=== PATIENT | female | born 1980 | race Caucasian/White ===

== ENCOUNTER 2024-02-22 10:43 | Outpatient (CLI) | payer OTHER, SELFPAY ==
--- NOTE | 2024-02-22 10:56 | US_ITS ---
WS: [id number] THYROID ULTRASOUND HISTORY: ENLARGED THYROID COMPARISON: None available. Right lobe: 1.3 cm x 1.2 cm x 5.3 cm (w x ap x l). Volume: 4.0 cm3. There is a single spongiform nodule in the mid RIGHT thyroid measuring 1.4 x 0.8 x 1.4 cm. Predominan tly cystic mass. Mild peripheral increased vascularity. Left lobe: 1.2 cm x 1.1 cm x 4.7 cm (w x ap x l). Volume: 2.8 cm3. Normal size and echotexture. No significant or dominant nodules are present. Isthmus: 0.3 cm. US/US thyroid [id number] IMPRESSION: 1. TI-RADS 2: Spongiform nodule RIGHT thyroid lobe. No biopsy recommended. 2. No thyromegaly.
== END 2024-02-22 10:44 | disposition home or self-care (01) ==
PROVIDERS: Visit Provider Nurse Practitioner
DX: E04.1 Nontoxic single thyroid nodule (principal)
CPT/HCPCS: 76536

== ENCOUNTER 2024-11-02 20:50 | Emergency (ER) | payer OTHER, SELFPAY ==
[2024-11-02 20:57] VITALS: BP 118/81; PULSE 91; RESP 22; TEMP 37; O2SAT 98; BMI 37.2
--- NOTE | 2024-11-02 21:40 | XRR_ITS ---
PROCEDURE INFORMATION: Exam: XR Chest Exam date and time: 11/02/2024 9:45 PM Age: 43 years old Clinical indication: Shortness of breath; PT reporting flu-like symptoms and needing her inhaler more often for the last week. PT reports the last few hours she started having an asthma attack with persistent coughing. Nebs and mdi's helping a little but not fully resolved. PT is forcefully exhaling which causes her to cough. ; Additional info: SOB TECHNIQUE: Imaging protocol: Radiologic exam of the chest. Views: 1 view. COMPARISON: No relevant prior studies available. FINDINGS: Lungs: Unremarkable. No consolidation. Pleural spaces: Unremarkable. No pleural effusion. No pneumothorax. Heart/Mediastinum: Cardiomegaly. Bones/joints: Unremarkable. XR/XR chest 1V portable [id number] IMPRESSION: No acute findings.
--- NOTE | 2024-11-02 21:41 | W.ED.URI ---
HPI - URI/Sore Throat General: Chief Complaint: Upper Respiratory Infection Stated Complaint: asthma attack Time Seen by Provider: 11/02/24 21:24 Source: patient Mode of arrival: ambulatory Limitations: no limitations History of Present Illness: Patient is a 43-year-old female with a history of asthma here with recent illness and concerns for asthma exacerbation. She states her asthma is normally well-controlled and usually does not require use of her albuterol inhaler. She states over the past several days she has had cough, congestion, runny nose. Positive sick contacts. She has not been running fevers. She arrives with stable vital signs and satting 98% on room air. MD elicited complaint: cough Onset (ago): day(s) Consistency: intermittent Severity: moderate Description of mucous: clear Able to tolerate fluids by mouth: Yes Exacerbating factors: nothing Relieving factors: nothing Associated symptoms: Deny abdominal pain, chills, chest pain, diarrhea, fever(s), headache(s), nausea or vomiting Treatments prior to arrival: none Related Data Previous Rx's ?Medication ?Instructions ?Recorded albuterol sulfate 2.5 mg/0.5 mL 2.5 mg (0.5 mL) inhalation Q3H PRN 11/02/24 solution for nebulization shortness of breath or wheezing #30 ea prednisone 10 mg tablet 10 mg PO DAILY 6 days #20 tabs 11/02/24 Allergies Allergy/AdvReac Type Severity Reaction Status Date / Time clarithromycin (From Biaxin) Allergy ALGY-Rash Verified 11/02/24 21:03 Penicillins Allergy Unknown Verified 11/02/24 21:03 sulfamethoxazole (From Allergy ALGY-Anaphy Verified 11/02/24 21:03 Septra) laxis trimethoprim (From Septra) Allergy ALGY-Anaphy Verified 11/02/24 21:03 laxis fluticasone (From Advair AdvReac ADR-Dry Verified 11/02/24 21:04 Diskus) Mucus Membranes Opioids - Morphine Analogues AdvReac ADR-Agitate Verified 11/02/24 21:04 d salmeterol (From Advair AdvReac ADR-Dry Verified 11/02/24 21:04 Diskus) Mucus Membranes Review of Systems Const: Denies: fever(s), chills, body aches, fatigue or malaise Card: Denies: chest pain or palpitations Resp: Reports: dyspnea, non-productive cough, wheezing and chest congestion; Denies: stridor GI: Denies: abdominal pain, nausea, vomiting or diarrhea Musc: Denies: neck pain Neuro: Denies: headache(s) or dizziness Physical Exam Const: COMMON NORMALS: no acute distress, patient oriented x3, no limitations, alert and well nourished GENERAL APPEARANCE: cooperative NUTRITIONAL APPEARANCE: obese (BMI 37.2) ORIENTATION/CONSCIOUSNESS: Yes awake, Yes oriented to person, Yes oriented to place and Yes oriented to time HENMT: FACE & SINUS: normal facial exam MOUTH: Normal oral and palatal mucosa present and lip normal THROAT: posterior oropharynx normal and tonsils normal Eye: GENERAL EYE: appearance normal, both eyes and all related structures Neck/C-Spine: GENERAL: Yes normal visual inspection, No anterior neck swelling and No submandibular swelling Chest: COMMONS NORMALS: normal inspection of the chest and normal palpation of entire chest wall Resp: COMMON NORMALS: normal respiratory effort AUSCULTATION: wheezes OTHER: dry non-productive cough Cardio: COMMON NORMALS: regular rate and regular rhythm RATE: regular rate RHYTHM: regular rhythm Extremity: GENERAL: Yes normal exam except as noted Neuro: COMMON NORMALS: patient oriented x3 SENSORIUM/ORIENTATION: Yes alert, Yes oriented to person, Yes oriented to place and Yes oriented to time Course Vital Signs: Vital signs: Vital Signs Temperature 98.6 F 11/02/24 20:57 Pulse Rate 90 11/02/24 22:37 Respiratory Rate 18 11/02/24 22:37 Blood Pressure 130/74 11/02/24 22:37 Pulse Oximetry 95 11/02/24 22:37 Oxygen Delivery Me thod Room Air 11/02/24 22:37 MDM - URI/Sore Throat Medical Decision Making Patient feels better after DuoNeb and IM Solu-Medrol. CXR is unremarkable. COVID/flu/RSV testing was negative. Patient will be allowed discharge. Will place on a steroid taper. She states she does have a nebulizer machine at home so we will prescribe her albuterol vials she can use. Return to ED precautions discussed. Medical Records I reviewed the patient's medical records. Lab Data I reviewed the patient's lab results. Radiology Impressions Chest X-Ray 11/02/24 21:40 IMPRESSION: No acute findings. Laboratory Results Influenza A (PCR) Negative (Negative) 11/02/24 22:04 Influenza Type B (PCR) Negative (Negative) 11/02/24 22:04 RSV (PCR) Negative (Negative) 11/02/24 22:04 SARS-CoV-2 (PCR) Negative (Negative) 11/02/24 22:04 All radiology interpretation(s) finalized by discharge Discharge Plan Discharge Patient Disposition: Home Clinical Impression: Upper respiratory infection Qualifiers: URI type: unspecified URI Qualified Code(s): J06.9 - Acute upper respiratory infection, unspecified Asthma exacerbation Qualifiers: Asthma severity: mild Asthma persistence: unspecified Qualified Code(s): J45.901 - Unspecified asthma with (acute) exacerbation Condition: Stable Prescriptions: New prednisone 10 mg tablet 10 mg PO DAILY 6 Days Qty: 20 0RF Rx Instructions: Take 5 tabs on day 1-2, 4 tabs on day 3, 3 tabs on day 4, 2 tabs on day 5, and 1 tab on day 6 albuterol sulfate 2.5 mg/0.5 mL solution for nebulization 2.5 mg inhalation Q3H PRN (Reason: shortness of breath or wheezing) Qty: 30 0RF Discharge Orders: Discharge ED (Routine); Ordered 11/02/24 Ordered By: Marisol Smith Patient Instructions: Asthma (DC), Upper Respiratory Infection (DC) Print Language: Upper Sorbian Coding Level of Care Code ED State'S Attorney for Di Goodman
[2024-11-02 21:47] VITALS: BP 152/83; PULSE 97; RESP 22; O2SAT 96
[2024-11-02 22:01] VITALS: PULSE 95; RESP 18; O2SAT 94
[2024-11-02 22:06] VITALS: PULSE 106
[2024-11-02] MEDS: ipratropium-albuterol 3 mL Neb INHALATION (22:09)
[2024-11-02] MEDS: methylPREDNISolone sod succ 125 mg/2 mL INJ IM (22:35)
[2024-11-02 22:37] VITALS: BP 130/74; PULSE 90; RESP 18; O2SAT 95
[2024-11-02 23:12] LABS: Influenza A NEGATIVE (Negative); Influenza B NEGATIVE (Negative); Respiratory Syncytial Virus Ce NEGATIVE (Negative); SARS-CoV-2 PCR NEGATIVE (Negative)
[2024-11-03 00:01] VITALS: BP 117/67; PULSE 98; RESP 20; O2SAT 100
== END 2024-11-03 00:05 | disposition home or self-care (01) ==
PROVIDERS: Emergency Provider Physician Assistant
DX: J06.9 Acute upper respiratory infection, unspecified (principal); J45.901 Unspecified asthma with (acute) exacerbation; Z11.52 Encounter for screening for COVID-19
CPT/HCPCS: 71045; 87637; 94640; 96372; 99284; J2919

== ENCOUNTER → 2024-12-31 08:22 | Outpatient (BNVA) | payer OTHER, SELFPAY | PROVIDERS: Visit Provider Nurse Practitioner Women's Health | DX: D25.9 Leiomyoma of uterus, unspecified (principal) | CPT/HCPCS: 76830 ==

== ENCOUNTER 2025-01-07 15:03 | Emergency (ER) | payer OTHER, SELFPAY ==
[2025-01-07 15:29] VITALS: BP 139/83; PULSE 83; TEMP 36.8; O2SAT 95
[2025-01-07 15:32] LABS: Basophils % 0.6 %; Eosinophils # 0.2 10^3/uL (0.0-0.8); Eosinophils % 2.3 %; Hematocrit 40.7 % (36-47); Lymphocytes # 2.4 10^3/uL (0.8-4.8); Lymphocytes % 34.4 %; Mean Corpuscular HGB Conc 32.4 g/dL (30-55); Mean Corpuscular Hemoglobin 30.2 pg (27-33); Mean Corpuscular Volume 93.1 fl (85-98); Mean Platelet Volume 9.3 fL (7.4-10.4); Monocytes # 0.5 10^3/uL (0.2-0.9); Monocytes % 7.2 %; Neutrophils # 3.91 10^3/uL (1.8-7.7); Neutrophils % 55.2 %; Nucleated Red Blood Cells % 0 %; Platelet Count 298 10^3/cmm (157-399); Red Blood Count 4.37 10^6/uL (3.85-5.65); Red Cell Distribution Width 12.2 % (12.1-15.1); White Blood Count 7.07 10^3/uL (3.29-11.43)
[2025-01-07 15:48] LABS: HCG, Serum Qual Negative (Negative)
[2025-01-07 15:50] LABS: Alanine Aminotransferase 13 U/L (0-33); Albumin Level 4.4 g/dL (3.5-5.2); Alkaline Phosphatase 67 U/L (35-105); Aspartate Amino Transferase 15 U/L (0-32); Blood Urea Nitrogen 13 mg/dL (6-20); Calcium 9.2 mg/dL (8.5-10.5); Carbon Dioxide 22 mmol/L (22-29); Chloride 102 mmol/L (98-107); Creatinine Clr Calc Pharmacy 133.3796; Globulin 3.2 g/dL (1.3-4.6); Glomerular Filtration Rate 108.1 mL/min (90-130); Glucose 88 mg/dL (65-115); Lipase 34 U/L (13-60); Osmolality Calculated 286 mOsm/kg (285-295); Sodium 138 mmol/L (136-145); Total Bilirubin 0.4 mg/dL (0.15-1.2); Total Protein 7.6 g/dL (6.6-8.7)
--- NOTE | 2025-01-07 16:00 | USR_ITS ---
PROCEDURE INFORMATION: Exam: US Abdomen, Limited; Right Upper Quadrant Exam date and time: 01/07/2025 4:26 PM Age: 44 years old Clinical indication: Abdominal pain; Additional info: Ruq pain TECHNIQUE: Imaging protocol: Real time ultrasound of the abdomen with image documentation. Limited exam focused on the right upper quadrant. COMPARISON: US transvaginal [id number] 12/31/2024 8:30 AM FINDINGS: Liver: There is diffuse increased echogenicity of the liver parenchyma and attenuation of sound in the deep portions of the liver obscuring fine hepatic detail, consistent with fatty infiltration. There is no focal liver abnormality. Gallbladder: The gallbladder is normal. There are no stones. There is no wall thickening or pericholecystic fluid. Information regarding sonographic Devlin sign was not provided. Biliary ducts: The common bile duct is nondilated measuring 3 mm. Pancreas: The pancreas is largely obscured by overlying bowel gas. Right kidney: The right kidney is unremarkable. Cortical thickness and echotexture is normal. There is no hydronephrosis. No visible stones. The right kidney measures 10.9 cm in length. Aorta: The visible portion of the abdominal aorta is unremarkable. Inferior vena cava: The visible portion of the IVC is unremarkable. Portal venous: The main portal vein demonstrates hepatopetal flow. US/US gall bladder [id number] IMPRESSION: Hepatic steatosis.
--- NOTE | 2025-01-07 16:04 | ED_ITS ---
HPI - Abdominal Pain 2 General: Chief Complaint: Abdominal Pain Stated Complaint: abd pain Time Seen by Provider: 01/07/25 15:16 Source: patient Mode of arrival: ambulatory Limitations: no limitations History of Present Illness: 44-year-old female presents to the ED wi th complaint of right upper quadrant abdominal pain. Patient reports she has had this pain for years but has recently worsened over the last few weeks. It does radiate to the back. She states that it is worse after eating, and extends to the epigastric area at that time. She reports nausea and loose stool, but she says that these are also all chronic issues. She was on Levaquin for UTI, last dose 2 days ago. She also reports a 40 pound weight gain over the last 6 to 8 weeks. She has been managing the nausea at home with a past prescription of promethazine. Significant family history of gallbladder disease. Patient also reports that she has fibromyalgia and had to train herself to feel pain again. Currently seeing [facility] due to her longstanding history of uterine fibroids, PCOS, and recently had consultation with primary care in regards to potential hysterectomy. States that if you press my abdomen that will cause me to spot. States that there are no new issues with this at this time. MD elicited complaint: abdominal pain Onset (ago): year(s) Pain Consistency: colicky Location: RUQ Severity: moderate Quality: stabbing and fullness Radiation: epigastric and back Exacerbating factors: eating and movement Context: recent antibiotic use and history of similar episodes Associated Symptoms: Reports heartburn and nausea; Denies chills, constipation, diarrhea, dysuria, fever(s), hematochezia, hematuria, hematemesis and vomiting Treatments prior to arrival: antacids Related Data Home Medications ?Medication ?Instructions ?Recorded ?Confirmed fexofenadine 60 mg tablet (Francine 60 mg PO BID 01/07/25 Allergy) famotidine 20 mg tablet (Pepcid) 20 mg PO BID 01/07/25 01/07/25 fluticasone propionate 50 1 spray intranasal BID 01/0701/07/25 mcg/actuation nasal spray,suspension multivitamin 1 tab PO DAILY 01/07/2512/11 Previous Rx's ?Medication ?Instructions ?Recorded albuterol sulfate 2.5 mg/0.5 mL 2.5 mg (0.5 mL) inhala tion Q3H PRN 11/02/24 solution for nebulization shortness of breath or wheez ing #30 ea ondansetron 4 mg disintegrating 4 mg PO TID PRN nausea and 01/07/25 tablet vomiting #30 tabs Allergies Allergy/AdvReac Type Severity Reaction Status Date / Time clarithromycin (From Biaxin) Allergy ALGY-Rash Verified 01/07/25 15:37 Penicillins Allergy Unknown Verified 01/07/25 15:37 sulfamethoxazole (From Allergy ALGY-Anaphy Verified 01/07/25 15:37 Septra) laxis trimethoprim (From Septra) Allergy ALGY-Anaphy Verified 01/07/25 15:37 laxis fluticasone (From Advair AdvReac ADR-Dry Verified 01/07/25 15:37 Diskus) Mucus Membranes Opioids - Morphine Analogues AdvReac ADR-Agitate Verified 01/07/25 15:37 d salmeterol (From Advair AdvReac ADR-Dry Verified 01/07/25 15:37 Diskus) Mucus Membranes Review of Systems 2 General: Reports: 10 or more systems reviewed and unremarkable except in HPI and below Const: Reports: change in appetite (Decreased appetite due to nausea; several weeks) and change in weight (40 pound gain in last 6-8 weeks); Denies: fever(s) or chills Card: Denies: chest pain Resp: Denies: dyspnea GI: Reports: abdominal pain, nausea, heartburn and mucus in stool; Denies: vomiting, hematemesis, diarrhea, constipation or hematochezia : Reports: oliguria; Denies: flank pain, difficulty voiding, dysuria, hematuria, vaginal odor or vaginal bleeding Musc: Reports: back pain Neuro: Denies: headache(s) PFSH ED 2 PFSH: Medical History Fibroids PCOS (polycystic ovarian syndrome) Cervical polyp Fibromyalgia delivery delivered Family History Denies family history of Colon cancer Ovarian cancer Heart disease Breast cancer Hypertension Uterine cancer Thyroid disease Stroke Social History Smoking and tobacco/nicotine status: former use of tobacco/nicotine Physical Exam 2 Const: COMMON NORMALS: no acute distress, patient oriented x3, no limitations, healthy appearing, alert and well nourished GENERAL APPEARANCE: cooperative NUTRITIONAL APPEARANCE: obese ORIENTATION/CONSCIOUSNESS: Yes awake Eye: COMMON NORMALS: Equal, round and reactive pupils present, EOMs intact bilaterally, conjunctivae normal and normal visual santos by confrontation C ONJUNCTIVA: Yes conjunctivae normal PUPIL: Yes Equal, round and reactive pupils present Neck/C-Spine: COMMON NORMALS: full ROM, supple, no meningeal signs and no JVD Resp: COMMON NORMALS: normal respiratory effort, No retractions, No use of accessory muscles and clear to auscultation bilaterally AUSCULTATION: clear to auscultation bilaterally, no crackles, no rales, no rhonchi and no wheezes Cardio: COMMON NORMALS: no JVD, regular rate, regular rhythm, S1 normal heart sound present, S2 normal heart sound present, No gallops present (Cardio), No clicks present (Cardio), No murmurs present (Cardio), No rub (Cardio) and Peripheral pulses 2+ throughout RATE: regular rate RHYTHM: regular rhythm HEART SOUNDS: S1 normal heart sound present and S2 normal heart sound present PERIPHERAL PULSES: Peripheral pulses 2+ throughout GI: COMMON NORMALS: Normal to inspection, nondistended, normoactive bowel sounds present, Soft to palpation, No hepatosplenomegaly present and no masses INSPECTION: Yes central obesity AUSCULTATION: Yes normoactive bowel sounds PALPATION: Yes Soft to palpation, Yes Tenderness to palpation present (GI) Details: RUQ, No Guarding due to palpation present (GI), No Rigid due to palpation and Yes No hepatosplenomegaly present RECTAL EXAM: deferred O THER: Positive Devlin sign : COMMON NORMALS: Yes no CVA tenderness BLADDER/KIDNEY EXAM: Yes no CVA tenderness Back/Pelvis: COMMON NORMALS: no CVA tenderness Extremity: COMMON NORMALS: normal to inspection and full ROM Neuro: COMMON NORMALS: patient oriented x3, moves all extremities, no focal motor deficits and no sensory deficits noted SENSORIUM/ORIENTATION: Yes alert MENINGEAL SIGNS: Yes no meningeal signs Psych: COMMON NORMALS: mental status grossly normal, cooperative and speech normal SPEECH: Yes normal speech Skin: COMMON NORMALS: no rashes or lesions noted GENERAL SKIN EXAM: no rashes or lesions noted Course 2 Vital Signs: Vital signs: Vital Signs Temperature 98.3 F 01/07/25 15:29 Pulse Rate 83 01/07/25 15:29 Blood Pressure 139/83 01/07/25 15:29 Pulse Oximetry 95 01/07/25 15:29 Oxygen Delivery Me thod Room Air 01/07/25 15:29 MDM - Abdominal Pain Medical Decision Making This patient presented for acute on chronic right upper quadrant abdominal pain that has been bothering her over years. Currently seeing [facility] to discuss potential hysterectomy, she clarified that this is a separate issue. On physical exam there was questionable positive Devlin sign, obese female but overall normal exam otherwise. Family history of gallbladder issues reported. Her vitals have been within normal limits throughout ED stay. Her CBC CMP lipase and urinalysis were all negative. Ultrasound showing hepatic steatosis, but no acute cholecystitis or obstruction of the common bile duct. She notes significant improvement after GI cocktail, was also given Zofran here for nausea. Offered dose of pain medicine before discharge, she declined, but will send Zofran in for nausea. Differential diagnosis includes biliary colic, constipation, gastroenteritis, pancreatitis. I am suspecting biliary colic at this time due to her normal laboratory workup and essentially normal imaging, thus we will refer her to general surgery for further evaluation, potentially HIDA scan. Also informed her to continue following up with [facility] in regards to her chronic vaginal bleeding, she is discharged at this time in stable condition with general return precautions given. Lab Data 01/07/25 15:23 01/07/25 15:23 Labs/Radiology: Radiology Impressions Gallbladder Ultrasound 01/07/25 16:00 IMPRESSION: Hepatic steatosis. Laboratory Results WBC 7.07 10^3/uL (3.29-11.43) 01/07/25 15:23 RBC 4.37 10^6/uL (3.85-5.65) 01/07/25 15:23 Hgb 13.20 g/dL (11.27-16.99) 01/07/25 15:23 Hct 40.7 % (36-47) 01/07/25 15:23 MCV 93.1 fl (85-98) 01/07/25 15:23 MCH 30.2 pg (27-33) 01/07/25 15:23 MCHC 32.4 g/dL (30-55) 01/07/25 15:23 RDW 12.2 % (12.1-15.1) 01/07/25 15:23 Plt Count 298 10^3/cmm (157-399) 01/07/25 15:23 MPV 9.3 fL (7.4-10.4) 01/07/25 15:23 Neut % (Auto) 55.2 % 01/07/25 15:23 Lymph % (Auto) 34.4 % 01/07/25 15:23 Sullivan % (Auto) 7.2 % 01/07/25 15:23 Eos % (Auto) 2.3 % 01/07/25 15:23 Baso % (Auto) 0.6 % 01/07/25 15:23 Neut # (Auto) 3.91 10^3/uL (1.8-7.7) 01/07/25 15:23 Lymph # (Auto) 2.4 10^3/uL (0.8-4.8) 01/07/25 15:23 Sullivan # (Auto) 0.5 10^3/uL (0.2-0.9) 01/07/25 15:23 Eos # (Auto) 0.2 10^3/uL (0.0-0.8) 01/07/25 15:23 Baso # (Auto) 0.0 10^3/uL (0.0-0.1) 01/07/25 15:23 Nucleated RBC % (auto) 0 % 01/07/25 15:23 Nucleated RBCs # 0.0 /100WBC 01/07/25 15:23 Sodium 138 mmol/L (136-145) 01/07/25 15:23 Potassium 4.0 mmol/L (3.5-5.1) 01/07/25 15:23 Chloride 102 mmol/L (98-107) 01/07/25 15:23 Carbon Dioxide 22 mmol/L (22-29) 01/07/25 15:23 Anion Gap 18.0 (5-19) 01/07/25 15:23 BUN 13 mg/dL (6-20) 01/07/25 15:23 Creatinine 0.6 mg/dL (0.5-0.9) 01/07/25 15:23 GFR Calculation 108.1 mL/min (90-130) 01/07/25 15:23 Glucose 88 mg/dL (65-115) 01/07/25 15:23 Calculated Osmolality 286 mOsm/kg (285-295) 01/07/25 15:23 Calcium 9.2 mg/dL (8.5-10.5) 01/07/25 15:23 Total Bilirubin 0.4 mg/dL (0.15-1.2) 01/07/25 15:23 AST 15 U/L (0-32) 01/07/25 15:23 ALT 13 U/L (0-33) 01/07/25 15:23 Alkaline Phosphatase 67 U/L (35-105) 01/07/25 15:23 Total Protein 7.6 g/dL (6.6-8.7) 01/07/25 15:23 Albumin 4.4 g/dL (3.5-5.2) 01/07/25 15:23 Globulin 3.2 g/dL (1.3-4.6) 01/07/25 15:23 Lipase 34 U/L (13-60) 01/07/25 15:23 HCG, Qual Negative (Negative) 01/07/25 15:23 Urine Color Yellow (Yellow) 01/07/25 16:10 Urine Appearance Clear (CLEAR) 01/07/25 16:10 Urine pH 6.0 (5-7) 01/07/25 16:10 Ur Specific Clarissa 1.024 (1.005-1.030) 01/07/25 16:10 Urine Protein Negative (Negative) 01/07/25 16:10 Urine Glucose (UA) Negative (Normal) 01/07/25 16:10 Urine Ketones Negative (Negative) 01/07/25 16:10 Urine Blood Negative (Negative) 01/07/25 16:10 Urine Nitrate Negative (Negative) 01/07/25 16:10 Urine Bilirubin Negative (Negative) 01/07/25 16:10 Urine Urobilinogen 1.0 mg/dL (Negative) 01/07/25 16:10 Ur Leukocyte Esterase Negative (Negative) 01/07/25 16:10 Urine RBC 3-5 /hpf (0-2) 01/07/25 16:10 Urine WBC 0-5 /hpf (0-5) 01/07/25 16:10 Ur Squamous Epith Cells 6-10 /hpf (0-5) 01/07/25 16:10 Amorphous Sediment Not Reportable 01/07/25 16:10 Urine Bacteria Trace /hpf (NONE) 01/07/25 16:10 Hyaline Casts 0.40 /lpf 01/07/25 16:10 All radiology interpretation(s) finalized by discharge Discharge Plan Discharge Patient Disposition: Home Clinical Impression: Biliary colic, Fatty liver Condition: Stable Prescriptions: New ondansetron 4 mg tablet,disintegrating 4 mg PO TID PRN (Reason: nausea and vomiting) Qty: 30 0RF No Action fexofenadine [Francine Allergy] 60 mg tablet 60 mg PO BID albuterol sulfate 2.5 mg/0.5 mL solution for nebulization 2.5 mg inhalation Q3H PRN (Reason: shortness of breath or wheezing) Qty: 30 0RF multivitamin Tablet 1 tab PO DAILY famotidine [Pepcid] 20 mg Tablet 20 mg PO BID fluticasone propionate 50 mcg/actuation [place],Suspension 1 spray INTRANASAL BID Rx Instructions: administer into each nostril Discharge Orders: Discharge ED (Routine); Ordered 01/07/25 Ordered By: Kervin Recinos Referrals: Jennifer Block MD [Primary Care Provider, Family Practice] Patient Instructions: Biliary Colic (ED), Low Fat Diet (ED), Abdominal Pain (ED) Activity Restrictions/Additional Instructions: Please follow-up with a general surgeon. Low-fat diet. Zofran for nausea, ibuprofen and Tylenol for pain. Please refer to attached patient instructions for further education. Return with any fevers, worsening abdominal pain, yellowish discoloration of skin, or other major concerns that you have. Print Language: American Coding Level of Care Code ED Specialized Language Instructor for Di Goodman
[2025-01-07] MEDS: ondansetron 4 MG Tablet PO (16:09)
[2025-01-07] MEDS: lidocaine 2% viscous 15 ML, aluminum-mag hydrox-simethicon 30 ML, sucralfate oral liq 1 GM PO (16:11)
[2025-01-07 16:24] LABS: Bilirubin Urine Negative (Negative); Blood Urine Negative (Negative); Glucose Urine UA Negative (Normal); Ketones Urine Negative (Negative); Leukocyte Esterase Urine Negative (Negative); Nitrate Urine Negative (Negative); Protein Urine Negative (Negative); Specific Gravity, Urine 1.024 (1.005-1.030); Urine Appearance Clear (CLEAR); Urine Color Yellow (Yellow)
[2025-01-07 16:26] LABS: Add Urine Microscopic? YES; Bacteria Urine Trace /hpf; WBC Urine 0-5 /hpf (0-5)
[2025-01-07 16:39] LABS: Add Urine Culture? No
[2025-01-07 17:29] VITALS: BP 145/92; PULSE 72; O2SAT 94
--- NOTE | 2025-01-08 07:25 | DCPLANNER ---
messaged gen surg for er f/u
== END 2025-01-07 17:32 | disposition home or self-care (01) ==
PROVIDERS: Emergency Medicine; Emergency Provider Physician Assistant; PCP Family Medicine
DX: K80.50 Calculus of bile duct without cholangitis or cholecystitis without obstruction (principal); K76.0 Fatty (change of) liver, not elsewhere classified; Z87.891 Personal history of nicotine dependence
CPT/HCPCS: 36415; 76705; 80053; 81001; 83690; 84703; 85025; 99284; J9999; Q0162

== ENCOUNTER 2025-01-21 09:35 | Outpatient (CLI) | payer OTHER, SELFPAY ==
--- NOTE | 2025-01-21 09:40 | MM_ITS ---
WS: [id number] BILATERAL 3D TOMOSYNTHESIS DIGITAL SCREENING MAMMOGRAPHY WITH CAD CLINICAL INFORMATION: SCREENING HISTORY: Screening mammogram. No current complaints. COMPARISON: 2022 TECHNIQUE: Bilateral CC and MLO views. FINDINGS: Scattered fibroglandular densities bilaterally. No suspicious focal mass, asymmetry, calcifications, or architectural distortion. No evidence of malignancy. MM/MM scr BI tomosynthesis [id number] IMPRESSION: DENSITY: There are scattered areas of fibroglandular density. BI-RADS: 1 - Negative. FOLLOW UP: 1 Year Follow-up Recommend return to annual screening mammography.
== END 2025-01-21 09:36 | disposition home or self-care (01) ==
PROVIDERS: PCP Nurse Practitioner; Visit Provider Nurse Practitioner
DX: Z12.31 Encounter for screening mammogram for malignant neoplasm of breast (principal); R92.323 Mammographic fibroglandular density, bilateral breasts
CPT/HCPCS: 77063; 77067

== ENCOUNTER → 2025-01-29 10:05 | Outpatient (BNVA) | payer OTHER, SELFPAY | PROVIDERS: PCP Family Medicine; Referring Provider Physician Assistant; Visit Provider Student in an Organized Health Care Education/Training Program | DX: R10.11 Right upper quadrant pain (principal) | CPT/HCPCS: 99204 ==

== ENCOUNTER 2025-02-03 10:46 | Day surgery (SDC) | payer OTHER, SELFPAY ==
[2025-02-03] MEDS: sodium chloride 0.9% 1,000 ML 15 ML IV (11:24)
[2025-02-03 11:26] VITALS: BP 136/74; PULSE 88; RESP 18; TEMP 36.9; O2SAT 97; BMI 40.4
[2025-02-03 11:33] LABS: OR HCG Qualitative Urine Negative (Negative)
--- NOTE | 2025-02-03 11:37 | ANES.PREANE2 ---
Pre-Anesthetic Assessment Height/Weight: Height 1.6 m Weight 103.419 kg Temp Pulse Resp BP Pulse Ox O2 Del Method 98.4 F 88 18 136/74 97 Room Air 02/03/25 11:02/03/25 11:02/03/25 11:02/03/25 11:02/03/25 11:02/03/25 11:26 Operation Date: 02/03/25 12:45 Proposed Procedures p EGD 24998 R10.11(Not Applicable) - Jackson Angela MD Familial anesthetic complications: States she is very hard to put to sleep has woken up multiple times during operations, fighting Was Beta Luigi taken within 24 hours: N/A Was Clonidine taken within 24 hours: N/A Last intake: Intake Last Liquid Date 02/02/25 Last Liquid Time 22:00 Last Solid Date 02/02/27 Last Solid Time 22:00 Social No alcohol and No tobacco former smoker Exam alert, oriented x 3, clear to auscultation bilaterally and regular rate & rhythm Airway Mallampati: Class II Dentition: full Pulmonary Asthma GI Gastroesophageal Reflux Disease Anesthetic Plan ASA status: 2 Anesthesia: MAC Risk of > 500 ml blood loss (7ml/kg in children): No Medications/Allergies Home Medications ?Medication ?Instructions ?Recorded ?Confirmed ?Last Taken ?Type albuterol sulfate 2.5 mg/0.5 mL 2.5 mg (0.5 mL) inhalation Q3H PRN 11/02/24 01/30/25 01/08/25 Rx solution for nebulization shortness of breath or wheezing #30 ea fexofenadine 60 mg tablet (Francine 60 mg PO BID 12/25/24 01/30/25 02/02/25 History Allergy) famotidine 20 mg tablet (Pepcid) 20 mg PO DAILY PRN Heartburn 01/07/25 01/30/25 01/30/25 History fluticasone propionate 50 1 spray intranasal BID 01/07/25 01/30/25 02/02/25 History mcg/actuation nasal spray,suspension multivitamin 1 tab PO DAILY 01/07/25 01/30/25 02/02/25 History ondansetron 4 mg disintegrating 4 mg PO TID PRN nausea and 01/07/25 01/30/25 Unknown Rx tablet vomiting #30 tabs pantoprazole 40 mg tablet,delayed 40 mg PO BID 6 weeks #84 tabs 01/29/25 01/30/25 Unknown Rx release (Protonix) albuterol 90 mcg/actuation aerosol 90 mcg inhalation QID PRN 02/03/25 02/03/25 02/02/25 History inhaler Shortness Of Breath Or Wheezing naproxen sodium 220 mg tablet 220 mg PO BID PRN Pain (Scale 02/03/25 02/03/25 02/02/25 History (Aleve) Score 4-6) Allergies Allergy/AdvReac Type Severity Reaction Status Date / Time clindamycin Allergy Severe ALGY-Anaphy Verified 01/30/25 11:10 laxis clarithromycin (From Biaxin) Allergy ALGY-Rash Verified 01/30/25 11:10 fentanyl Allergy ADR-Irritab Verified 02/03/25 11:13 le morphine Allergy ADR-Itching Verified 02/03/25 11:13 Penicillins Allergy Unknown Verified 01/30/25 11:10 sulfamethoxazole (From Allergy ALGY-Anaphy Verified 01/30/25 11:10 Septra) laxis trimethoprim (From Septra) Allergy ALGY-Anaphy Verified 01/30/25 11:10 laxis fluticasone (From Advair AdvReac ADR-Dry Verified 01/30/25 11:10 Diskus) Mucus Membranes Opioids - Morphine Analogues AdvReac ADR-Agitate Verified 01/30/25 11:10 d salmeterol (From Advair AdvReac ADR-Dry Verified 01/30/25 11:10 Diskus) Mucus Membranes Current Medications Generic Name Dose Route Start Last Admin Trade Name Freq PRN Reason Stop Dose Admin Sodium Chloride 1,000 mls @ 15 mls/hr 02/03/25 10:55 02/03/25 11:24 Sodium Chloride 0.9% IV 02/04/25 10:54 15 mls/hr .Q24H PRN Administration COLONOSCOPY FLUIDS PFSH Anesthesia Medical History Fibroids PCOS (polycystic ovarian syndrome) Cervical polyp Fibromyalgia delivery delivered Family History Denies family history of Colon cancer Ovarian cancer Heart disease Breast cancer Hypertension Uterine cancer Thyroid disease Stroke Social History Smoking and tobacco/nicotine status: former use of tobacco/nicotine
--- NOTE | 2025-02-03 11:54 | W.PM.OPSUD ---
Surgery/Procedure H&P Update DATE OF PROCEDURE: February 03, 2025 DATE H&P PERFORMED: 01/29/25 H&P UPDATE INFORMATION: I have reviewed H&P completed within last 30 days, I have examined patient prior to procedure and No changes to prior documentation PLANNED PROCEDURE: Operation Date: 02/03/25 12:45 Proposed Procedures p EGD 70569 R10.11(Not Applicable) - Jackson Angela MD
[2025-02-03 13:00] VITALS: BP 93/77; PULSE 81; RESP 18; TEMP 36.9; O2SAT 99
--- NOTE | 2025-02-03 13:25 | ANE.PACU2 ---
Inpatient post-anesthesia follow up: Airway intact: Yes Vital signs: Temperature 98.4 F Pulse Rate 81 Respiratory Rate 18 Blood Pressure 93/77 Pulse Oximetry 99 Oxygen Delivery Me thod Room Air Oxygen Flow Rate Fraction of Inspir ed Oxygen Hydration adequate: Yes Nausea and vomiting: No Pain level: 1 Mental status: Baseline
== END 2025-02-03 13:25 | disposition home or self-care (01) ==
PROVIDERS: Anesthesiology; PCP Family Medicine; Visit Provider Student in an Organized Health Care Education/Training Program
PROC: 0DJ08ZZ Inspection of Upper Intestinal Tract, Via Natural or Artificial Opening Endoscopic (ICD-10-PCS; principal; 2025-02-03 12:45)
DX: K29.80 Duodenitis without bleeding (principal); K29.50 Unspecified chronic gastritis without bleeding; K21.9 Gastro-esophageal reflux disease without esophagitis; Z88.1 Allergy status to other antibiotic agents; Z88.0 Allergy status to penicillin; Z88.2 Allergy status to sulfonamides; Z88.5 Allergy status to narcotic agent; Z88.8 Allergy status to other drugs, medicaments and biological substances; Z87.891 Personal history of nicotine dependence
CPT/HCPCS: 43239; 81025; 88305; 88342; J2704; J7030; J9999

== ENCOUNTER 2025-02-11 09:15 | Outpatient (CLI) | payer OTHER, SELFPAY ==
--- NOTE | 2025-02-11 10:00 | NM_ITS ---
WS: [id number] NUCLEAR MEDICINE HIDA SCAN WITH GALLBLADDER EJECTION FRACTION HISTORY: right upper quadrant abdominal pain COMPARISON: 01/07/2025 TECHNIQUE: The patient was intravenously injected with 7.8 mCi of TC99m Mebrofenin. Immediate imaging over the right upper quadrant was followed by 5 minute image and additional images for a total of 60 minutes. Normal uptake of radiotracer throughout the liver. Activity identified in the gallbladder at 15 minutes and well distended by 60 minutes. Activity in the proximal small bowel was seen by 60 minutes. Good washout of the radiotracer from the liver by 60 minutes. The patient then drank 8 ounces of Ensure Plus. Ejection fraction at 60 minutes was 75%. Normal GB ejection fraction is 35-75%. Post fatty meal symptoms: None. NM/NM hepatobiliary w phar* [id number] IMPRESSION: 1. Normal HIDA scan. 2. Normal gallbladder ejection fraction.
== END 2025-02-11 09:16 | disposition home or self-care (01) ==
LOC: RAD 09:17
PROVIDERS: PCP Family Medicine; Visit Provider Student in an Organized Health Care Education/Training Program
DX: R10.11 Right upper quadrant pain (principal)
CPT/HCPCS: 78227; A9537

== ENCOUNTER → 2025-02-19 09:08 | Outpatient (BNVA) | payer OTHER, SELFPAY | PROVIDERS: PCP Family Medicine; Visit Provider Student in an Organized Health Care Education/Training Program | DX: Z09 Encounter for follow-up examination after completed treatment for conditions other than malignant neoplasm (principal) | CPT/HCPCS: 99213 ==

== ENCOUNTER → 2025-03-26 10:22 | Outpatient (BNVA) | payer OTHER, SELFPAY | PROVIDERS: PCP Family Medicine; Visit Provider Obstetrics & Gynecology | DX: Z12.4 Encounter for screening for malignant neoplasm of cervix (principal) | CPT/HCPCS: 87624 ==

== ENCOUNTER 2025-04-07 08:16 | Day surgery (SDC) | payer OTHER, SELFPAY ==
--- NOTE | 2025-04-06 19:03 | W.PM.OPSFHP ---
Same Day Surgery H&P Indication for Procedure/HPI DATE OF PROCEDURE: April 06, 2025 CHIEF COMPLAINT/INDICATIONFOR SURGICAL PROCEDURE: abnormal uterine bleeding PREOP DIAGNOSIS: abnormal uterine bleeding PLANNED PROCEDURE: Operation Date: 04/07/25 09:50 Proposed Procedures p Hysteroscopy w/ Endometrial Sampling 29851 [id number], N93.9(Not Applicable) - Pino De Souza MD s POSSIBLE Endometrial Poylpectomy(Not Applicable) - Pino De Souza MD 44 y.o. h/o BTL h/o endometrial ablation has continued to have irregular bleeding after endometrial ablation Medications/Allergies* Home Medications ?Medication ?Instructions ?Recorded ?Confirmed ?Type fexofenadine 60 mg tablet (Francine 60 mg PO BID 12/25/24 04/06/25 History Allergy) fluticasone propionate 50 1 spray intranasal BID 01/07/25 04/06/25 History mcg/actuation nasal spray,suspension multivitamin 1 tab PO DAILY 01/07/25 04/06/25 History albuterol 90 mcg/actuation aerosol 90 mcg inhalation QID PRN 02/03/25 04/06/25 History inhaler Shortness Of Breath Or Wheezing naproxen sodium 220 mg tablet 220 mg PO BID PRN Pain (Scale 02/03/25 04/06/25 History (Aleve) Score 4-6) cephalexin 500 mg capsule 500 mg PO TID 04/06/25 04/06/25 History cholecalciferol (vitamin D3) 50 50 mcg PO DAILY 04/06/25 04/06/25 History mcg (2,000 unit) tablet (Vitamin D3) doxylamine succinate 25 mg tablet 25 mg PO BEDTIME PRN Sleep 04/06/25 04/06/25 History (Unisom (doxylamine)) Allergies/Adverse Reactions Allergy/AdvReac Type Severity Reaction Status Date / Time clindamycin Allergy Severe ALGY-Anaphy Verified 03/26/25 08:13 laxis clarithromycin (From Biaxin) Allergy ALGY-Rash Verified 03/26/25 08:13 fentanyl Allergy ADR-Irritab Verified 03/26/25 08:13 le hydrocodone Allergy ADR-Agitate Verified 04/06/25 12:22 d morphine Allergy ADR-Itching Verified 03/26/25 08:13 oxycodone Allergy ADR-Agitate Verified 04/06/25 12:22 d Penicillins Allergy Unknown Verified 03/26/25 08:13 sulfamethoxazole (From Allergy ALGY-Anaphy Verified 03/26/25 08:13 ) laxis tramadol Allergy ADR-Headach Verified 04/06/25 12:22 e trimethoprim (From ) Allergy ALGY-Anaphy Verified 03/26/25 08:13 laxis fluticasone (From Advair AdvReac ADR-Dry Verified 03/26/25 08:13 Diskus) Mucus Membranes Opioids - Morphine Analogues AdvReac ADR-Agitate Verified 03/26/25 08:13 d salmeterol (From Advair AdvReac ADR-Dry Verified 03/26/25 08:13 Diskus) Mucus Membranes Pertinent History/Comorbid Conditions* Medical History (Updated 02/05/25 @ 23:46 by Pino De Souza MD) Fibroids PCOS (polycystic ovarian syndrome) Cervical polyp Fibromyalgia delivery delivered Family History (Updated 12/25/24 @ 10:09 by Shannan Franz CMA) Denies family history of Colon cancer Ovarian cancer Heart disease Breast cancer Hypertension Uterine cancer Thyroid disease Stroke Social History Smoking and tobacco/nicotine status: former use of tobacco/nicotine Pertinent Exam Findings alert, oriented x 3, clear to auscultation bilaterally and regular rate & rhythm Pertinent Data Pelvic sono 12-31-24 uterus 10.4 x 5.3 x 5.8 cm 2.6 cm fibroid Endometrium 3 mm Normal ovaries Recommendations Surgery/Procedure today Coding Level of Care Code Acute Code for Chg Fwd
[2025-04-07] VITALS (9 sets, daily range): BP systolic 105–132; BP diastolic 70–87; PULSE 70–76; RESP 17–20; TEMP 36.1–36.7; O2SAT 93–98; BMI 38.6
[2025-04-07 08:31] LABS: OR HCG Qualitative Urine Negative (Negative)
--- NOTE | 2025-04-07 08:56 | ANES.PREANE2 ---
Pre-Anesthetic Assessment Height/Weight: Height 5 ft 3 in Weight 218 lb Temp Pulse Resp BP Pulse Ox O2 Del Method 97.5 F L 71 18 128/87 96 Room Air 04/07/25 08:21 04/07/25 08:21 04/07/25 08:21 04/07/25 08:21 04/07/25 08:21 04/07/25 08:35 Preop Diagnosis: abnormal uterine bleeding Operation Date: 04/07/25 09:50 Proposed Procedures p Hysteroscopy w/ Endometrial Sampling [id number], N93.9(Not Applicable) - Pino De Souza MD s POSSIBLE Endometrial Poylpectomy(Not Applicable) - Pino De Souza MD Was Beta Luigi taken within 24 hours: N/A Was Clonidine taken within 24 hours: N/A Last intake: Intake Last Liquid Date 04/06/25 Last Liquid Time 23:00 Last Solid Date 04/06/25 Last Solid Time 20:00 Social No alcohol and No tobacco quit smoking 3 years ago Exam alert, oriented x 3, clear to auscultation bilaterally and regular rate & rhythm Airway Submandibular: within normal limits Cervical ROM: within normal limits Mallampati: Class III Dentition: full Comments: Comments: To lower lip rings, can be removed Anesthetic Plan ASA status: 3 Anesthesia: General Other: No prior issues with anesthesia besides she states that she is hard to put down History of asthma, quit smoking 3 years ago GERD, controlled with Protonix and sucralfate hCG negative Denies any cardiac issues METs greater than 4 Patient has 2 lower lip rings that she states cannot be removed Plan for general anesthesia Medications/Allergies Home Medications ?Medication ?Instructions ?Recorded ?Confirmed ?Last Taken ?Type albuterol sulfate 2.5 mg/0.5 mL 2.5 mg (0.5 mL) inhalation Q3H PRN 11/02/24 04/06/25 04/06/25 Rx solution for nebulization shortness of breath or wheezing #30 ea fexofenadine 60 mg tablet (Rfancine 60 mg PO BID 12/25/24 04/06/25 04/06/25 History Allergy) fluticasone propionate 50 1 spray intranasal BID 01/07/25 04/06/25 04/06/25 History mcg/actuation nasal spray,suspension multivitamin 1 tab PO DAILY 01/07/25 04/06/25 04/06/25 History albuterol 90 mcg/actuation aerosol 90 mcg inhalation QID PRN 02/03/25 04/06/25 04/06/25 History inhaler Shortness Of Breath Or Wheezing naproxen sodium 220 mg tablet 220 mg PO BID PRN Pain (Scale 02/03/25 04/06/25 04/06/25 History (Aleve) Score 4-6) pantoprazole 40 mg tablet,delayed 40 mg PO BID 30 days #60 tabs 02/19/25 04/06/25 04/07/25 Rx release (Protonix) sucralfate 100 mg/mL oral 10 ml PO BID 30 days #840 mL 02/19/25 04/06/25 04/07/25 Rx suspension cephalexin 500 mg capsule 500 mg PO TID 04/06/25 04/06/25 04/06/25 History cholecalciferol (vitamin D3) 50 50 mcg PO DAILY 04/06/25 04/06/25 04/06/25 History mcg (2,000 unit) tablet (Vitamin D3) doxylamine succinate 25 mg tablet 25 mg PO BEDTIME PRN Sleep 04/06/25 04/06/25 04/06/25 History (Unisom (doxylamine)) Allergies Allergy/AdvReac Type Severity Reaction Status Date / Time clindamycin Allergy Severe ALGY-Anaphy Verified 03/26/25 08:13 laxis clarithromycin (From Biaxin) Allergy ALGY-Rash Verified 03/26/25 08:13 fentanyl Allergy ADR-Irritab Verified 03/26/25 08:13 le hydrocodone Allergy ADR-Agitate Verified 04/06/25 12:22 d morphine Allergy ADR-Itching Verified 03/26/25 08:13 oxycodone Allergy ADR-Agitate Verified 04/06/25 12:22 d Penicillins Allergy Unknown Verified 03/26/25 08:13 sulfamethoxazole (From Allergy ALGY-Anaphy Verified 03/26/25 08:13 Septra) laxis tramadol Allergy ADR-Headach Verified 04/06/25 12:22 e trimethoprim (From Septra) Allergy ALGY-Anaphy Verified 03/26/25 08:13 laxis fluticasone (From Advair AdvReac ADR-Dry Verified 03/26/25 08:13 Diskus) Mucus Membranes Opioids - Morphine Analogues AdvReac ADR-Agitate Verified 03/26/25 08:13 d salmeterol (From Advair AdvReac ADR-Dry Verified 03/26/25 08:13 Diskus) Mucus Membranes Current Medications Generic Name Dose Route Start Last Admin Trade Name Freq PRN Reason Stop Dose Admin Sodium Chloride 1,000 mls @ 30 mls/hr 04/07/25 08:30 04/07/25 08:42 Sodium Chloride 0.9% IV 04/08/25 08:29 30 mls/hr .Q24H JENNIFER Administration PFSH Anesthesia Medical History Fibroids PCOS (polycystic ovarian syndrome) Cervical polyp Fibromyalgia delivery delivered Family History Denies family history of Colon cancer Ovarian cancer Heart disease Breast cancer Hypertension Uterine cancer Thyroid disease Stroke Social History Smoking and tobacco/nicotine status: former use of tobacco/nicotine
--- NOTE | 2025-04-07 09:56 | W.PM.OPSUD ---
Surgery/Procedure H&P Update DATE OF PROCEDURE: April 07, 2025 DATE H&P PERFORMED: 04/07/25 H&P UPDATE INFORMATION: I have reviewed H&P completed within last 30 days, I have examined patient prior to procedure and No changes to prior documentation PREOP DIAGNOSIS: abnormal uterine bleeding PLANNED PROCEDURE: Operation Date: 04/07/25 09:50 Proposed Procedures p Hysteroscopy w/ Endometrial Sampling [id number] [id number], N93.9(Not Applicable) - Pino De Souza MD s POSSIBLE Endometrial Poylpectomy(Not Applicable) - Pnio De Souza MD
--- NOTE | 2025-04-07 10:45 | PM.OP ---
Operative Report Date of procedure: April 07, 2025 Pre-op diagnosis: abnormal uterine bleeding Post-op diagnosis: same Post-op findings: normal cervix and endometrial cavity small amount of endometrial tissue Procedure done: hysteroscopy Curettage of uterus Implants: none Specimens removed/disposition: endometrial tissue Surgeon: Pino De Souza MD Anesthesia: MAC Estimated blood loss (mL): 0 Complications: none Findings: normal endometrial cavity No polyps / fibroids small amount of endometrial tissue Brief History: 44 y.o. with abnormal uterine bleeding Procedure: Patient was taken to the operating room. Anesthesia was induced. Patient was placed in dorsolithotomy position, prepped and draped for hysteroscopy. A bivalve speculum was placed in the vagina. The anterior lip of the cervix was grasped with a sharp-toothed tenaculum. The cervix was serially dilated with Hegar dilators. . A hysteroscope was placed into the endometrial cavity. The endometrial cavity was seen to be normal. There were no polyps or fibroids. There was a small amount of endometrial tissue. The hysteroscope was then removed. Endometrial curettage was done with a sharp curette. Endometrial tissue was sent to pathology. The sharp-toothed tenaculum was removed. There was no bleeding from the endometrial cavity or cervix. The patient was then placed supine and awakened and taken to the PACU. Postop condition: stable EBL: none Sponge and instruments counts were normal x 2 Complications: none
--- NOTE | 2025-04-07 12:29 | ANE.PACU2 ---
Inpatient post-anesthesia follow up: Airway intact: Yes Vital signs: Temperature 98.1 F Pulse Rate 71 Respiratory Rate 17 Blood Pressure 132/79 Pulse Oximetry 98 Oxygen Delivery Me thod Room Air Oxygen Flow Rate Fraction of Inspir ed Oxygen Hydration adequate: Yes Nausea and vomiting: No Pain level: 1 Mental status: Baseline
== END 2025-04-07 12:29 | disposition home or self-care (01) ==
PROVIDERS: PCP Family Medicine; Visit Provider Obstetrics & Gynecology
PROC: 0UJD8ZZ Inspection of Uterus and Cervix, Via Natural or Artificial Opening Endoscopic (ICD-10-PCS; CPT 58555; principal; 2025-04-07 09:40)
DX: N93.9 Abnormal uterine and vaginal bleeding, unspecified (principal); D21.9 Benign neoplasm of connective and other soft tissue, unspecified; E28.2 Polycystic ovarian syndrome; M79.7 Fibromyalgia; N84.1 Polyp of cervix uteri; Z87.891 Personal history of nicotine dependence; J45.909 Unspecified asthma, uncomplicated; K21.9 Gastro-esophageal reflux disease without esophagitis
CPT/HCPCS: 58558; 81025; 88305; A4216; J1171; J2250; J2704; J3010; J7030; J9999

== ENCOUNTER 2025-05-15 10:37 | Outpatient (CLI) | payer OTHER, SELFPAY ==
--- NOTE | 2025-05-15 10:45 | MR_ITS ---
WS: [id number] MRI LUMBAR SPINE NONCONTRAST TECHNIQUE: Sagittal T1, T2 and STIR imaging. Axial T1 and T2 imaging. CLINICAL INFORMATION: LOW BACK PAIN/UNABLE TO DORSIFLEX R FOOT OR SPREAD TOES COMPARISON: None. FINDINGS: Mild lumbar curve. No acute compression. No high-grade central canal stenosis. L1-L2: Mild facet arthropathy. Spinal canal and foramen are patent. L2-L3: Mild annular bulging. Slight effacement of the ventral thecal sac. Mild facet arthropathy. Tiny RIGHT foraminal protrusion with mild RIGHT foraminal narrowing. L3-L4: Mild annular bulging. Slight effacement of the ventral thecal sac. Moderate facet arthropathy. Small bilateral foraminal protrusions with mild foraminal narrowing. L4-L5: Mild annular bulging. Narrowing of the subarticular recess bilaterally. Mild LEFT foraminal narrowing. Mild facet arthropathy. L5-S1: Mild annular bulging with slight effacement of the ventral thecal sac. Moderate facet arthropathy. Foramen are patent. Visualized pelvic bony structures: Normal. Paravertebral soft tissues: Normal. 10 mm RIGHT renal cyst. MR/MR lumbar spine wo con* [id number] IMPRESSION: 1. Mild lumbar curve. No acute compression. 2. No high-grade spinal canal or foraminal narrowing. 3. Tiny RIGHT L2-3 foraminal protrusion with mild RIGHT foraminal narrowing. 4. Tiny bilateral foraminal protrusions L3-4 with mild bilateral foraminal jackelyn rowing. 5. Mild annular bulging L4-5 with slight narrowing of the subarticular recess bilaterally and mild foraminal narrowing. 6. Mild facet arthropathy L3-L5.
== END 2025-05-15 10:38 | disposition home or self-care (01) ==
PROVIDERS: PCP Family Medicine; Visit Provider Nurse Practitioner
DX: M47.816 Spondylosis without myelopathy or radiculopathy, lumbar region (principal); M21.371 Foot drop, right foot; M43.9 Deforming dorsopathy, unspecified; N28.1 Cyst of kidney, acquired; M47.818 Spondylosis without myelopathy or radiculopathy, sacral and sacrococcygeal region; M48.061 Spinal stenosis, lumbar region without neurogenic claudication; M48.08 Spinal stenosis, sacral and sacrococcygeal region
CPT/HCPCS: 72148